=== PATIENT | male | born 1985 | race Caucasian/White ===

== ENCOUNTER 2023-11-13 10:50 | Emergency (ER) | payer MEDICARE, MEDICAID ==
[~2023-11-13] VITALS: Ht 175.3 cm; Wt 165.0 kg
[~2023-11-13 10:50] MED LIST: ALBU8HFA PO; DICY10CA88 PO; HYDR25TA4 PO; IBUP-1984 PO
[2023-11-13 10:53] VITALS: TEMP 98.9
[2023-11-13] MEDS ORDERED: metoprolol tartrate 25mg tablet PO ONE (11:30)
[2023-11-13] MEDS ORDERED: aspirin 81mg tab.chew PO ONE (11:30)
[2023-11-13 12:03] LABS: BASOPHILS # (AUTO) 0.1 X10'3 (0-0.2); BASOPHILS % (AUTO) 0.7 % (0-1); EOSINOPHILS # (AUTO) 0.2 X10'3 (0-0.9); EOSINOPHILS % (AUTO) 1.4 % (0-6); HEMATOCRIT 46.2 % (42.0-52.0); HEMOGLOBIN 15.4 g/dl (14.0-17.9); LYMPHOCYTES # (AUTO) 1.8 X10'3 (1.1-4.8); LYMPHOCYTES % (AUTO) 17.2 % (21-51); MEAN CORPUSCULAR HEMOGLOBIN 28.8 PG (27.0-31.0); MEAN CORPUSCULAR HGB CONC 33.3 g/dL (33.0-36.5); MEAN CORPUSCULAR VOLUME 86.5 FL (78-98); MEAN PLATELET VOLUME 9.8 FL (7.4-10.4); MONOCYTES # (AUTO) 0.7 X10'3 (0-0.9); MONOCYTES % (AUTO) 6.5 % (2-12); NEUTROPHILS # (AUTO) 7.7 X10'3 (1.8-7.7); NEUTROPHILS % (AUTO) 74.2 % (42-75); PLATELET COUNT 175 X10'3 (140-440); RED BLOOD COUNT 5.34 X10'6 (4.70-6.10); RED CELL DISTRIBUTION WIDTH 13.3 % (11.5-14.5); WHITE BLOOD COUNT 10.4 X10'3 (4.5-11.0)
[2023-11-13 12:18] LABS: ALANINE AMINOTRANSFERASE 63 U/L (12-78); ALBUMIN 3.8 G/DL (3.4-5.0); ALKALINE PHOSPHATASE 78 IU/L (46-116); ANION GAP 10 (8-16); ASPARTATE AMINO TRANSFERASE 26 U/L (10-37); BILIRUBIN,TOTAL 0.7 MG/DL (0.1-1.0); BLOOD UREA NITROGEN 11 MG/DL (7-18); BUN/CREATININE RATIO 14.1 (10.0-20.0); CALCIUM 9.3 MG/DL (8.5-10.1); CHLORIDE 103 MMOL/L (99-107); CREATININE 0.78 MG/DL (0.60-1.10); GLUCOSE 103 MG/DL (70-104); POTASSIUM 3.9 MMOL/L (3.5-5.1); SODIUM 137 MMOL/L (135-145); TOTAL PROTEIN 7.8 G/DL (6.4-8.2); eCRCL 127 ML/MIN; eGFR > 90 ML/MIN
[2023-11-13 12:27] LABS: PRO BRAIN NATRIURETIC PEPTIDE < 30 PG/ML (0-125)
[2023-11-13 12:36] VITALS: BP 149/79; PULSE 78; RESP 18; O2SAT 98
== END 2023-11-13 17:38 | disposition left against medical advice (07) ==
LOC: ER 10:52
DX: I10 Essential (primary) hypertension (principal); Z53.21 Procedure and treatment not carried out due to patient leaving prior to being seen by health care provider
CPT/HCPCS: 36415; 71045; 80053; 83735; 83880; 84484; 85025; 93005; 99281

== ENCOUNTER 2025-07-05 18:41 | Emergency (ER) | payer MEDICARE, MEDICAID ==
[~2025-07-05] VITALS: Ht 175.3 cm; Wt 135.8 kg
[2025-07-05 18:44] VITALS: BP 130/65; PULSE 78; RESP 16; TEMP 98.6; O2SAT 98
--- NOTE | 2025-07-05 18:50 | Physician Documentation ---
History of Present Illness ~ Stated Complaint: ELEVATED BLOOD PRESSURE Time Seen by MD: 19:27 OK to notify your PCP?: Yes Primary Medical Doctor: none Source: patient Mode of Arrival: POV Exam Limitations: no limitations HPI 40-year-old male presents for hypertension. He has been out of some of his medications but has still been able to take his blood pressure medication. He took his home blood pressure multiple times and was getting readings over 200 systolic. He denies any other associated symptoms such as vision change, headache, bloody nose or chest pain. Medication Reconciliation Allergies: Coded Allergies: Penicillins (Unverified Allergy, Intermediate, 01/21/13) Sulfa (Sulfonamide Antibiotics) (Unverified Allergy, Intermediate, 01/21/13) amoxicillin (Verified Allergy, Unknown, 07/13/16) Scheduled Dicyclomine Hcl* (Bentyl*), 1 CAP PO TID Hydrochlorothiazide (Hydrochlorothiazide), 1 TABLET PO DAILY, (Reported) Ibuprofen* (Motrin*), 800 MG PO TID, (Reported) Scheduled PRN albuterol inhaler (Pro-Air Inhaler), 1-2 PUFFS PO Q4H PRN for SOB or wheezing Past Medical History Past Medical History: Hypertension, Diabetes, Chronic Pain Past Surgical History: tonsillectomy Alcohol Use: Occasionally Drug Use: none Lives with: Family Lives In: Home Occupation: employed Review of Systems All Other Systems at this time: Reviewed and Negative ROS As stated above in the HPI, otherwise all systems are reviewed and negative. Physical Exam Vital Signs: RN Vital Signs have been reviewed: Yes Pulse Oximetry Reflects: adequate oxygenation Physical Exam General: Alert, no distress. HEENT: No injection, moist mucous membranes. Neck: Full range of motion. Respiratory: No respiratory distress, equal chest rise and fall. Chest: No accessory muscle use. Cardiovascular: Regular rate and rhythm. Gastrointestinal: Nondistended. Extremities: Normal range of motion, no deformity. Neurologic: Oriented x4. Psychiatric: Normal mood and affect. Skin: Normal color, warm and dry. Progress Results/Orders Results/Orders Vital Signs 07/05/25 18:44 Temp 98.6 Pulse 78 Resp 16 B/P (MAP) 130/65 Pulse Ox 98 O2 Flow Rate 0 Medical Decision Making Findings Patient presents to the emergency department complaining of high blood pressure. Patient is otherwise asymptomatic without confusion, chest pain, dysuria, vision changes, focal neurological deficit or SOB. Patient is hypertensive here. Doubt hypertenstive emergency, patient with no signs of AMS, pulmonary edema, heart failure, ACS, PRESS syndrome, intracranial hemorrhage, renal infarction or failure or other end organ damage. Plan to discharge patient home with PMD follow up. She has been provided with strict return precautions including increased hypertension headache confusion dizziness numbness tingling in fingers, or extremities. Differential Dx:Considerations: Include CHF, Include HTN, essential, Include HTN, accelerated, Include HTN, malignant, Include HTN, encephalopathy, Include medical noncompliance, Include medication withdrawal, Include pulmonary edema, Include renal failure, Include -induced, Include other Departure Disposition: 01 HOME / SELF CARE / HOMELESS Impression: Primary Impression: Benign hypertension Additional Instructions: Patient presents to the emergency department complaining of high blood pressure. Patient is otherwise asymptomatic without confusion, chest pain, dysuria, vision changes, focal neurological deficit or SOB. Patient is hypertensive here. Doubt hypertenstive emergency, patient with no signs of AMS, pulmonary edema, heart failure, ACS, PRESS syndrome, intracranial hemorrhage, renal infarction or failure or other end organ damage. Plan to discharge patient home with PMD follow up. She has been provided with strict return precautions including increased hypertension headache confusion dizziness numbness tingling in fingers, or extremities. Referrals: NO PRIMARY CARE PROVIDER (PCP) Education Educated: Patient Educated regarding: diagnosis, treatment, need for follow up Additional Comment Medical Screen Exam This patient recieved a medical screening examination. After reviewing the individual's medical complaints with presenting symptoms and performing an appropriate physical examination, it was determined that no immediate life- threatening emergency medical condition is present. This individual is also not a women having contractions. Signature Scribe Signature: A Attestation: Scribed for Ramesh Munoz by MAIN Renner . 07/05/25 20:07 JULIO PORTILLO Jul 05, 2025 18:50 RAMESH MUNOZ Jul 05, 2025 20:07
--- NOTE | 2025-07-05 19:01 | ELECTROCARDIOGRAPH REPORT ---
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
== END 2025-07-05 20:31 | disposition home or self-care (01) ==
LOC: ER 18:42
DX: I10 Essential (primary) hypertension (principal); E11.9 Type 2 diabetes mellitus without complications; Z88.0 Allergy status to penicillin; Z88.2 Allergy status to sulfonamides; Z79.899 Other long term (current) drug therapy; Z72.89 Other problems related to lifestyle
CPT/HCPCS: 93005; 99283

== ENCOUNTER 2025-09-22 09:18 | Emergency (ER) | payer OTHER, MEDICARE, MEDICAID ==
[~2025-09-22] VITALS: Ht 175.3 cm; Wt 138.3 kg
[2025-09-22 09:20] VITALS: BP 160/83; PULSE 68; RESP 16; TEMP 98.1; O2SAT 98
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
== END 2025-09-22 10:13 | disposition home or self-care (01) ==
LOC: ER 09:18
DX: S70.01XA Contusion of right hip, initial encounter (principal); S20.211A Contusion of right front wall of thorax, initial encounter; I10 Essential (primary) hypertension; G89.29 Other chronic pain; E11.9 Type 2 diabetes mellitus without complications; Z88.0 Allergy status to penicillin; Z88.2 Allergy status to sulfonamides; Z90.89 Acquired absence of other organs; Z88.1 Allergy status to other antibiotic agents; Z79.899 Other long term (current) drug therapy; Z72.89 Other problems related to lifestyle; V49.9XXA Car occupant (driver) (passenger) injured in unspecified traffic accident, initial encounter; Y93.89 Activity, other specified; Y92.89 Other specified places as the place of occurrence of the external cause; Y99.8 Other external cause status
CPT/HCPCS: 99282